=== PATIENT | male | born 1950 | race African-American/Black ===

== ENCOUNTER 2017-01-23 12:16 | Emergency (ER) | payer OTHER ==
[2017-01-23] MEDS ORDERED: Sodium Chloride 0.9% 1000 ML 1,000 ML IV SCH (12:30)
[2017-01-23] MEDS ORDERED: Effient 10 MG TABLET PO ONE (12:30)
[2017-01-23 12:38] VITALS: BP 152/82; PULSE 89; O2SAT 91
[2017-01-23 12:42] LABS: Mean Cell Volume 77.6 fl (78-100); Mean Corpuscular Hemoglobin 26.5 pg (26-32); Mean Platelet Volume 11.5 fl (6-9.5); Platelet Count 290 K/mm3 (150-450); Red Blood Count 4.56 M/mm3 (4.1-5.6); White Blood Count 13.8 K/mm3 (4.0-10.5)
--- NOTE | 2017-01-23 12:42 | ERPHSYRPT ---
- History of Present Illness Time Seen by Provider: 01/23/17 12:37 Historian: patient, EMS Exam Limitations: no limitations Patient Subjective Stated Complaint: CP SINCE THIS AM Triage Nursing Assessment: CP SINCE THIS AM. C/O LT INNER UPPER ARM PAIN SINCE THIS AM. DENIES NAUSEA/VOMITING. HAD STENT PLACEMENT 2 WEEKS AGO PER FACILITY NURSING. ON ARRIVAL, PT STATES PAIN TO LT ARM ONLY. DENIES N/V. 'THIS FEELS THE SAME THE LAST HEART ATTACK I HAD. Physician History: patient with left arm pain began around 10:30 AM, similar to previous symptoms when he had an acute AZ. Patient also with diaphoresis, palpitation, shortness of breath and weakness. Patient was given nitroglycerin and aspirin per sap architect. Patient apparently doing well prior to symptoms. Patient did have a stent placed for acute AZ 2 weeks ago. Denies any recent illnesses, no cough , fever, chills, no nausea, vomiting or diarrhea. Timing/Duration: today (10:30AM) Activities at Onset: none Quality: dullness, pressure Location: other (L arm) Chest Pain Radiation: no radiation Severity of Pain-Max: moderate Severity of Pain-Current: moderate Modifying Factors: Improves With: nitroglycerin (improved pain) Associated Symptoms: palpitations, shortness of breath, diaphoresis, weakness, dizziness, No nausea, No vomiting, No cough, No headache Prior Chest Pain/Cardiac Workup: heart attack (recent and had stent placed 2 weeks ago) Nitro Today/Relief: 0.4 mg x 4 Aspirin Treatment Today: 81 mg x 3 - Review of Systems Constitutional: No Fever, No Chills Eyes: No Symptoms Ears, Nose, & Throat: No Symptoms Respiratory: Dyspnea, No Cough, No Cyanosis Cardiac: Palpitations, No Chest Pain, No Edema, No Syncope Abdominal/Gastrointestinal: No Abdominal Pain, No Nausea, No Vomiting, No Diarrhea Genitourinary Symptoms: No Dysuria Musculoskeletal: No Back Pain, No Neck Pain Skin: No Rash Neurological: No Dizziness, No Focal Weakness, No Sensory Changes Psychological: No Symptoms Endocrine: No Symptoms All Other Systems: Reviewed and Negative - Past Medical History Pertinent Past Medical History: Yes Cardiac History: High Cholesterol, Hypertension, Myocardial Infarction (AZ) Endocrine Medical History: Diabetes Type I Other Medical History: UNSURE OF HISTORY - Past Surgical History Past Surgical History: (UNSURE) Cardiac: Cardiac Catheterization, Cardiac Stent - Social History Smoking Status: Unknown if ever smoked Drug Use: none - Nursing Vital Signs Temperature: 98.6 F Temperature Source: Oral Pulse Rate: 89 Respiratory Rate: 20 Pain Intensity: 8 - Physical Exam General Appearance: no apparent distress, alert Eye Exam: PERRL/EOMI, eyes nml inspection Ears, Nose, Throat Exam: normal ENT inspection, moist mucous membranes Neck Exam: normal inspection, non-tender, supple, full range of motion Respiratory Exam: normal breath sounds, lungs clear, No respiratory distress Cardiovascular Exam: regular rate/rhythm, normal heart sounds Gastrointestinal/Abdomen Exam: soft, No tenderness, No mass Back Exam: normal inspection, No CVA tenderness, No vertebral tenderness Extremity Exam: normal inspection, normal range of motion Neurologic Exam: alert, oriented x 3, cooperative, normal mood/affect, sensation nml, No motor deficits Skin Exam: normal color, warm, dry Lymphatic Exam: No adenopathy SpO2 Interpretation: borderline oxygenation SpO2: 91 Oxygen Delivery: Nasal Cannula - Course Nursing assessment & vital signs reviewed: Yes EKG Interpreted by Me: RATE (98), Sinus Rhythm, NORMAL AXIS, NORMAL INTERVALS, ST Elev (leads v2-v4 with reciprocal changes in III) - Radiology Exams Chest X-ray Interpretation: Interpreted by me, No Infiltrates, Other (questionable cardiomegaly) Ordered Tests: Active Orders 24 hr Category Date Time Status Tape Controlled Machine Stitcher STAT Care 01/23/17 12:27 Active IV Insertion STAT Care 01/23/17 12:27 Active Oxygen-ED Only NASAL CANNULA 2 lpm Care 01/23/17 12:27 Active Pulse Oximetry (ED) STAT Care 01/23/17 12:27 Active CHEST 1 VIEW (PORTABLE) Routine Exams 01/23/17 12:36 Ordered CHEST 1 VIEW (PORTABLE) Stat Exams 01/23/17 12:29 Ordered BMP Stat Lab 01/23/17 12:27 Ordered CBC W DIFF Stat Lab 01/23/17 12:27 Ordered CK-Creatinine Phosphokinase Stat Lab 01/23/17 12:27 Ordered TROPONIN Q3H Lab 01/23/17 12:30 Ordered TROPONIN Q3H Lab 01/23/17 15:30 Ordered TROPONIN Q3H Lab 01/23/17 18:30 Ordered TROPONIN Q3H Lab 01/23/17 21:30 Ordered TROPONIN Q3H Lab 01/24/17 00:30 Ordered Medication Summary Generic Name Dose Route Start Last Admin Trade Name Freq PRN Reason Stop Dose Admin Sodium Chloride 1,000 mls @ 100 mls/hr 01/23/17 12:30 Sodium Chloride 0.9% 1000 Ml IV 02/22/17 12:29 .Q10H MARTY - Progress Progress Note: 01/23/17 12:45 patient placed on acute [place] protocol. Dr. Alba, ER physician from [facility], was contacted and agreed to accept patient. Patient was hemodynamically stable upon transfer. Counseled pt/family regarding: lab results, diagnosis - Departure Time of Disposition: 12:47 Departure Disposition: Transfer ([facility]) Clinical Impression: Acute AZ anterior lateral subsequent episode care Condition: Stable Critical Care Time: Yes Critical Care Time(excluding separately billable procedures): 30-74 minutes
[2017-01-23 13:18] LABS: ANION GAP 15.3 MEQ/L (5-15); Carbon Dioxide 25.4 mEq/L (21-32); Potassium 3.8 mEq/L (3.5-5.1)
[2017-01-23 13:21] LABS: ANISOCYTOSIS 1+; Eosinophil 1 % (0.00-3.0); Platelet Estimate NORMAL (NORMAL); Poikilocytosis 1+; Total Cells Counted 100
--- NOTE | 2017-01-25 15:39 | XRAY ---
Indication: Chest pain. Comparison: None Portable apical lordotic chest clear. Heart and mediastinal structures within normal limits. Bony thorax intact with mild degenerative changes. Impression: Nonacute chest.
== END 2017-01-23 12:40 | disposition short-term general hospital (02) ==
LOC: ED 12:16 → EEVIPCON 12:16 → ED 12:40
DX: I21.29 ST elevation (STEMI) myocardial infarction involving other sites (principal); Z98.61 Coronary angioplasty status; M79.602 Pain in left arm; R00.2 Palpitations; R06.02 Shortness of breath; E10.9 Type 1 diabetes mellitus without complications; E78.00 Pure hypercholesterolemia, unspecified; I10 Essential (primary) hypertension; I25.2 Old myocardial infarction
CPT/HCPCS: 36000; 36415; 71010; 80048; 82550; 82962; 84484; 85025; 93005; 93041; 96360; 99285; A9270-GY